=== PATIENT | female | born 1975 | race Caucasian/White ===

== ENCOUNTER 2016-09-03 18:26 | Inpatient (IN) | payer OTHER ==
--- NOTE | ~2016-09-03 | DS ---
Unit #: [id number] #: [id number] Patient: DONNA LI [id number] [address] [address] [id number] I MR#: [id number] NAME: DONNA LI ROOM: 312 Age: 41 Sex: F Admission Date: 09/04/2016 : 1975 Discharge Date: 09/04/2016 Attending Physician: Jose Garvey M.D. Primary Care Physician: Paul Wells M.D. DISCHARGE SUMMARY SHORT STAY SUMMARY DISPOSITION Transfer to [facility]. CHIEF COMPLAINT Unresponsive. HISTORY OF PRESENT ILLNESS A 41-year-old female who has history of polysubstance abuse was brought to ER by EMS. The patient's son was walking outside on the road and he found his mother. He called his friend and was brought to patient's mother's home. EMS was called and patient was brought to ER with a possible heroin overdose. Narcan was given in EMS and that did help to wake her up, but she was pretty lethargic. The patient has been evaluated in room 312. She is lethargic but she does wake up and talk. She wants to go home. She wants her mother to come and pick her up. According to her, she used cocaine two days ago and she really actually does not like using any drugs. Although as per mother, patient has been dealing with this polysubstance abuse for some time. She is and she has four children. PAST MEDICAL HISTORY 1. History of hepatitis C. 2. History of chronic back and neck pain. 3. History of depression. 4. History of polysubstance abuse. PAST SURGICAL HISTORY 1. History of right wrist surgery. 2. Tubal ligation. SOCIAL HISTORY The patient is a smoker. Smokes one pack per day. No history of alcohol abuse. History of polysubstance abuse is present. HOME MEDICATIONS Multivitamin. ALLERGIES No known drug allergies, questionable allergy to codeine. FAMILY HISTORY Unit #: [id number] #: [id number] Patient: DONNA LI Not significant. REVIEW OF SYSTEMS As per history of presenting illness. This is as per patient's mother. Patient does not really want to communicate much. PHYSICAL EXAMINATION GENERAL: Patient is lying in bed in no respiratory distress. VITAL SIGNS: Blood pressure is 124/84, respiratory rate 18, pulse 89, temperature 98, oxygen saturation is 99%. HEENT: Head is normocephalic. Eyes movements are normal. NECK: Supple. CHEST: Fair air entry. No additional sounds. CARDIOVASCULAR: Regular rhythm. ABDOMEN: Soft. EXTREMITIES: Negative edema. CENTRAL NERVOUS SYSTEM: Patient is awake, alert, oriented x3. DIAGNOSTIC STUDIES LABORATORY: Lab workup shows WBC 7.7, hemoglobin 12.4, hematocrit 38.7, platelet count 245,000. Urinalysis shows trace leukocyte esterase. Urine drug screen is positive for opiates, cocaine, benzodiazepines, and amphetamines. Sodium is 136, potassium 3.9, chloride 103, BUN 8, creatinine 0.7. Liver enzymes are normal. Acetaminophen less than 7. IMAGING: CT scan of the head without contrast... Please note: This report has been placed on the patient's electronic medical record in an incomplete status following multiple physician notifications for a completion without a response or resolution. Dictated by... Paradise Clemons TD: 09/04/2016 12:12 JOB #: [id number] DISCHARGE SUMMARY Page 1 of 1 X Marilyn Davis MD X DISCHARGE SUMMARY
--- NOTE | ~2016-09-03 | CT71 ---
[facility] A Service of [facility] RADIOLOGY TEXT RESULTS PATIENT: DONNA LI LOCATION: [facility] : 73 UNIT #: [id number] AGE: [address]: Jose Garvey MD SEX: F ORDER DR: [id number] [facility]. [place], [place] [address] [id number] I MR#: [id number] Acc #: [id number] NAME: ODNNA LI : 1975 SEX: F STUDY DATE/TIME: 09/03/2016 21:51 UNIT: [address] ROOM: [facility] STUDY DESCRIPTION: CT Head Wo Contrast Attending Physician: Jose Garvey M.D. Ordering Physician: Dannie Davidson D.O. Primary Care Physician: Paul Wells M.D. MEDICAL IMAGING REPORT This report is preliminary unless electronic signature is present EXAM CT head, noncontrast, 09/03/2016 HISTORY 41-year-old female in the ED with reported heroin overdose. She complains of headache beginning earlier today. TECHNIQUE CT examination of the head without IV contrast. This CT examination was performed with one or more of the following radiation dose reduction techniques: automatic exposure control, adjustment of mA and/or kV according to patient size, and iterative reconstruction. FINDINGS The examination is negative. No evidence of intracranial hemorrhage, mass, mass effect, cerebral edema, hydrocephalus or additional abnormality. IMPRESSION Negative head CT examination. Dictated by... Rod Flynn M.D. THIS IS AN ELECTRONICALLY VERIFIED REPORT Rod Flynn M.D. at 09/04/2016 9:56 PM CASSIUS/rex TD: 09/04/2016 08:17 JOB #: [id number] MEDICAL IMAGING REPORT [facility] A Service of [facility] RADIOLOGY TEXT RESULTS PATIENT: DONNA LI LOCATION: [facility] : 73 UNIT #: [id number] AGE: [address]: Jose Garvey MD SEX: F ORDER DR: Page 1 of 1 COPY
--- NOTE | ~2016-09-03 | CO ---
Unit #: [id number] #: [id number] Patient: CARMENCITA LI [id number] [address] [address] [id number] I MR#: [id number] NAME: CARMENCITA LI ROOM: 312 Age: 41 Sex: F Admission Date: 09/04/2016 : 1975 Attending Physician: Jose Garvey M.D. Primary Care Physician: Paul Wells M.D. Consultation Date: 09/04/2016 CONSULTATION REPORT REASON FOR CONSULTATION Overdose and depression. HISTORY OF PRESENT ILLNESS Ms. Carmencita Li is a 41-year-old female, seen in room 312 on 09/04/2016 at [facility]. The patient dressed in hospital attire, was very agitated and angry, refusing to answer any question, paranoid. The patient was admitted to hospital after taking an overdose of heroin. The patient refused to talk multiple times throughout the assessment, gave minimal information. The patient disclosed that she attempted to overdose because she could not get a job. The patient refused to give further details. The patient's urine drug screen was positive for opioid, amphetamine, and cocaine. The patient reported only use heroin. The patient is using 1 g of heroin daily. The last use was on 09/03/2016. The patient reported taking 6 mg of Xanax daily. The patient refused to disclose some further details, suicidal, sad, depressed, currently on one-to-one monitoring with a sitter. Denied any auditory or visual hallucination. PAST PSYCHIATRIC HISTORY Unremarkable for any history of any previous treatment. MEDICAL HISTORY None. MEDICATIONS None. FAMILY HISTORY AND SOCIAL HISTORY Poor support system. No history of abuse. History of substance abuse as mentioned above. REVIEW OF SYSTEMS A complete review of systems is unremarkable. MENTAL STATUS EXAMINATION The patient's vital signs; temperature 98.0, pulse 78, respirations 18, blood pressure 119/68, and oxygen saturation 100%. General appearance; the patient dressed in hospital attire. Attention span and concentration, poor. Speech, minimal. Orientation in self. Mood and affect; labile, agitated, and hostile. Thought process, circumstantial. Thought content; guarded, paranoid, suicide attempt, suicidal ideation. Recent and remote memory, poor. Language, fair. Fund of knowledge, poor. Insight and judgment, impaired. Unit #: [id number] #: [id number] Patient: CARMENCITA LI DIAGNOSES Psychiatric: Major depressive disorder, recurrent, severe, F33.2; psychosis, not otherwise specified, F29.0; opioid use disorder, severe, F11.20; amphetamine use disorder, severe, F15.20. Secondary diagnosis: Deferred. Medical diagnosis: Recent overdose. Stressors: Psychosocial stressor. ASSESSMENT AND PLAN 1. Supportive psychotherapy and psychoeducation provided to the patient. Educated about benefits and side effects of medication and course and prognosis of illness. 2. Recommending at this time to continue with 72-hour hold, one-to-one monitoring, and transfer the [facility] for psychiatric stabilization. Please feel free to call if any questions, telephone #[phone]. Dictated by... Paradise Monae/erik TD: 09/04/2016 22:48 JOB #: [id number] CONSULTATION REPORT Page 1 of 1 X Domenic Shukla MD X CONSULTATION REPORT
[~2016-09-03 18:26] MED LIST: BACLOFEN10 MG PO; HYDROCODON-ACE1 EAC1 PO; HYDROCODON-ACE1 EAC9 PO; KLONOPIN PO; LORTAB 10/500 T1 TAB PO; METHADONE PO; METRONIDAZOLE PO; NO MEDICATIONS; NORFLEX100 MG PO; PREDNISONE PO; ULTRAM PO; VICODIN 5/1 TAB 5/50 PO
[2016-09-03 20:26] LABS: BASOPHIL% 0.6 % (0-2.5); EOSINOPHIL# 0.2 X10e3 (0-0.7); EOSINOPHIL% 2.6 % (0.0-7.0); HEMATOCRIT 38.7 % (35.0-45.0); HEMOGLOBIN 12.4 gm/dL (12.0-16.0); LYMPHOCYTE# 1.6 X10e3 (1.0-3.5); LYMPHOCYTE% 20.9 % (17.0-45.0); MEAN CELL VOLUME 76.9 FL (83-96); MEAN CORPUSCULAR HEMOGLOBIN 24.7 PG (28-34); MEAN CORPUSCULAR HGB CONC 32.1 g/dL (30-36); MEAN PLATELET VOLUME 8.5 FL (6.5-11.5); MONOCYTE# 0.7 X10e3 (0-1.0); MONOCYTE% 8.9 % (3.0-12.0); NEUTROPHIL# 5.2 X10e3 (1.5-7.1); PLATELET COUNT 245 X10e3 (140-420); RED BLOOD COUNT 5.03 X10e (3.90-5.30); RED CELL DISTRIBUTION WIDTH 15.3 % (11.0-15.5); WHITE BLOOD COUNT 7.7 X10e3 (4.0-10.5)
[2016-09-03 20:28] LABS: DIFF IND NO
[2016-09-03 20:31] LABS: URINE APPEARANCE CLOUDY; URINE BILIRUBIN NEG (NEG); URINE BLOOD 2+ (NEG); URINE COLOR DK YELLOW; URINE GLUCOSE NEG (NEG); URINE KETONE TRACE (NEG); URINE LEUKOCYTE ESTERASE TRACE (NEG); URINE NITRATE NEG (NEG); URINE PH 5.5 (5-8); URINE PROTEIN NEG (NEG); URINE SPECIFIC GRAVITY 1.019 (1.003-1.035)
[2016-09-03 20:34] LABS: URBCS1 AUWI 0-2 /[HPF] (0-2); URINE BACTERIA AUWI NEG (NEGATIVE); URINE SQUAMOUS EPITHELIAL CELL FEW /[HPF]; UWBCS1 AUWI 0-2 (0-5)
[2016-09-03 20:35] LABS: CULTURE INDICATED? NO; URINE SOURCE CATH
[2016-09-03 20:47] LABS: AMPHETAMINE POS (NEG); BARBITURATES NEG (NEG); BENZODIAZEPINES POS (NEG); COCAINE POS (NEG); MARIJUANA NEG (NEG); OPIATES POS (NEG); TRICYCLIC ANTIDEPRESSANTS NEG (NEG); U METHADONE NEG (NEG)
[2016-09-03 20:51] LABS: ALBUMIN SERUM 3.6 g/dL (3.5-5.0); ALKALINE PHOSPHATASE 89 U/L (32-92); ALT (SGPT) 30 U/L (10-40); AST (SGOT) 38 U/L (10-42); BILIRUBIN, DIRECT 0.1 mg/dL (0.0-0.2); BILIRUBIN,INDIRECT 0.5 mg/dL (0.0-0.9); BILIRUBIN,TOTAL 0.6 mg/dL (0.2-2.0); BLOOD UREA NITROGEN 8 mg/dL (9-23); BUN/CREATININE RATIO 11.42; CALCIUM SERUM 8.9 mg/dL (8.4-10.2); CARBON DIOXIDE 25 mmol/L (22-31); CHLORIDE 103 mmol/L (100-111); CREATININE SERUM 0.7 mg/dL (0.6-1.4); GLOM FILT RATE Estimated 106.9 mL/min (>60); GLUCOSE FASTING 93 mg/dL (70-110); POTASSIUM 3.9 mmol/L (3.5-5.1); PROTEIN TOTAL SERUM 7.4 g/dL (6.0-8.3); SALICYLATE <4.0 mg/dL; SODIUM 136 mmol/L (135-145)
[2016-09-03 20:52] LABS: ACETAMINOPHEN <10 ug/mL; ALCOHOL BLOOD <5 mg/dL (0)
[2016-09-04] MEDS ORDERED: MULTIVITAMINS1 EAC3 PO (11:30)
== END 2016-09-04 14:53 | DRG 918 ==
LOC: CED 18:26 → CEDOF 09-04 00:36 → CED 09-04 02:24 → C3A PCU 09-04 02:24 → CEDOF 09-04 02:24 → C3A PCU 09-04 07:34 → CEDOF 09-04 07:34 → C3A PCU 09-04 14:53
PROVIDERS: Emergency Medicine
DX: T40.1X2A Poisoning by heroin, intentional self-harm, initial encounter (principal); F33.2 Major depressive disorder, recurrent severe without psychotic features; F11.20 Opioid dependence, uncomplicated; F15.20 Other stimulant dependence, uncomplicated; F29 Unspecified psychosis not due to a substance or known physiological condition
CPT/HCPCS: 36415; 51701; 70450; 80048; 80076; 80307; 81003; 85025; 96374; 99285; G0480

== ENCOUNTER 2016-09-04 11:00 | Inpatient (IN) | payer OTHER ==
--- NOTE | ~2016-09-04 | PA ---
Unit #: [id number] #: [id number] [facility] ABAD [id number] [facility] [address] [place] [address] [id number] I MR#: [id number] NAME: CARMENCITA ABAD ROOM: P208 Age: 41 Sex: F Admission Date: 09/04/2016 : 1975 Date of Assessment: Attending Physician: Domenic Shukla M.D. Admitting Physician: Domenci Shukla M.D. Primary Care Physician: Primary Care Physician No PSYCHIATRIC ASSESSMENT INFORMANTS The patient's reliability, fair; chart reliability, good. CHIEF COMPLAINT Overdose. HISTORY OF PRESENT ILLNESS Ms. Carmencita Abad is a 41-year-old female, transferred from [facility]. The patient has a history of previous treatment through [facility]. Lives with her mother. The patient was admitted after taking an overdose of heroin IV drug abuse. The patient was refusing to talk. Flat, sad, dysphoric mood, guarded and paranoid. The patient reported use of multiple drugs. The patient's urine drug screen was positive for opiate, amphetamine, cocaine. The patient reported taking Xanax. The patient was guarded, but denied any suicidal or homicidal ideation. Denied any suicidal ideation, but behavior was bizarre at the time of admission. Subsequently, the patient was placed on 72-hour hold and [facility]. PAST PSYCHIATRIC HISTORY Remarkable for history of treatment in rehab and outpatient services through [facility]. FAMILY HISTORY AND SOCIAL HISTORY The patient has a good support system. No history of abuse. No legal charges. MEDICAL HISTORY Unremarkable for any chronic medical condition. Musculoskeletal; muscle strength and tone, no atrophy or abnormal movement. Gait normal. MEDICATION HISTORY None. ALLERGIES No known drug allergies. SUBSTANCE ABUSE HISTORY The patient has a history of multiple drug abuse; history of tobacco use, age of onset 9; alcohol, age of onset 11; marijuana, 11; crack cocaine, 19; opioid, age of onset 29; and benzodiazepine, 18. Longest period of sobriety 18 months and last period of sobriety in 2012. The patient Unit #: [id number] #: [id number] Patient: CARMENCITA ABAD reported history of blackout; hepatitis; withdrawal symptoms; IV drug use symptoms such as abdominal cramping, muscle cramping, depressed mood. REVIEW OF SYSTEMS HEENT: Eyes, clear. Ears, nose, mouth, and throat; clear. CARDIOVASCULAR: Unremarkable. RESPIRATORY: Unremarkable. GI: Unremarkable. : Unremarkable. SKIN: Unremarkable. LYMPH NODE: Unremarkable. NEUROLOGIC: Unremarkable. ENDOCRINE: Unremarkable. HEMATOLOGIC: Unremarkable. ALLERGIC/IMMUNOLOGIC: Unremarkable. MUSCULOSKELETAL: Muscle strength and tone, no atrophy or abnormal movement except as mentioned above. MENTAL STATUS EXAMINATION CONSTITUTIONAL: Measurement of vital signs; temperature 98.0, pulse 78, respiratory rate 18, oxygen saturation 100%, and blood pressure 119/68. Height 5 feet 9 inches, weight 156 pounds. GENERAL APPEARANCE: The patient is tall, dressed casually in hospital attire. Attention span and concentration, fair. No facial deformity noted. MUSCULOSKELETAL: Please see above. PSYCHIATRIC EXAMINATION Description of speech; regular rate, normal volume. Description of thought process; circumstantial. Description of association; guarded and paranoid but denied any thoughts of harming self or others, mood lability and paranoia. Description of the patient's judgment; concerning everyday activity, poor. Social situation, poor. Concerning psychiatric condition, poor. Complete mental status examination; oriented in person. Attention and concentration, fair. Language, fair. Fund of knowledge, poor. Vocabulary, poor. Mood and affect, sad and dysphoric. Insight and judgment, fair to poor. ASSETS AND LIABILITIES Assets, the patient is articulate and able to take care of her ADL. Liability, history of depression, substance abuse. ADMITTING DIAGNOSES Psychiatric: 1. Mood disorder, not otherwise specified, F32.9. 2. Opioid use disorder, severe, F10.20. 3. Amphetamine use disorder, severe, F15.20. 4. Psychosis, not otherwise specified, F29.0. Secondary diagnosis: Deferred. Medical diagnosis: None. Stressors: Psychosocial stressors. PSYCHIATRIC PLAN 1. Advised to admit the patient on the inpatient unit. Provide safe, Unit #: [id number] #: [id number] Patient: CARMENCITA ABAD supportive, and structured environment. 2. Detox protocol and detox monitoring. 3. The patient to attend all the programing on the inpatient unit, group therapy, individual therapy, chemical dependency group, family session. TREATMENT GOAL To attain euthymic mood, gain insight into her problem, and learn coping skills. DISCHARGE PLAN Plan to stabilize the patient and consider followup in outpatient program. ESTIMATED LENGTH OF STAY 3 to 5 days. Dictated by... Domenic Shukla M.D. LEEROY/erik TD: 09/06/2016 03:36 JOB #: [id number] PSYCHIATRIC ASSESSMENT Page 1 of 1 X Domenic Shukla MD X PSYCHIATRIC ASSESSMENT
--- NOTE | ~2016-09-04 | DS ---
Unit #: [id number] #: [id number] Patient: DONNA LI [id number] [place] [address] [id number] I MR#: [id number] NAME: DONNA LI ROOM: [facility] Age: 41 Sex: F Admission Date: 09/04/2016 : 1975 Discharge Date: 09/05/2016 Attending Physician: Domenic Shukla M.D. Primary Care Physician: Primary Care Physician No DISCHARGE SUMMARY REASON FOR ADMISSION Substance abuse. DIAGNOSTIC STUDIES LABORATORY RESULTS: Unremarkable except urine drug screen positive for benzodiazepine, cocaine, amphetamines and opiates. HOSPITAL COURSE The patient was admitted to inpatient unit, treated with chemical dependency group, structured milieu, psychoeducation, psychotherapy, detox protocol. The patient responded well with the above modalities of treatment. Wanted to follow up in outpatient program. The patient at this time is not suicidal or homicidal denied any psychotic symptom, pleasant, cooperative. Subsequently, the patient was discharged with a plan to follow up in [facility] level of care. DISCHARGE MEDICATIONS None. DISCHARGE DIAGNOSES Psychiatric: 1. Mood disorder, not otherwise specified, F32.9. 2. Sedative hypnotic use disorder, F13.20. 3. Cocaine use disorder, moderate, F14.20. 4. Amphetamine use disorder, severe, F15.20. 5. Psychosis, not otherwise specified, F29.0. 6. Opioid use disorder, severe, F11.20. Secondary diagnosis: Deferred. Medical diagnosis: None. Stressors: Psychosocial stressors. DISCHARGE INSTRUCTIONS The patient to follow up in outpatient clinic as per case management social worker. CONDITION ON DISCHARGE The patient was pleasant and cooperative. Denied any psychotic symptom or any suicidal ideation. PROGNOSIS Guarded. Unit #: [id number] #: [id number] Patient: DONNA LI DIET AND ACTIVITY As tolerated. Dictated by... Paradise Monae/erik TD: 09/06/2016 01:47 JOB #: [id number] DISCHARGE SUMMARY Page 1 of 1 X Domenic Shukla MD X DISCHARGE SUMMARY
--- NOTE | ~2016-09-04 | HP ---
Unit #: [id number] #: [id number] Patient: CARMENCITA LI 128509 [place] [address] [id number] I MR#: [id number] NAME: CARMENCITA LI ROOM: P208 Age: 41 Sex: F Admission Date: 09/04/2016 : 1975 Attending Physician: Domenic Shukla M.D. Admitting Physician: Domenic Shukla M.D. Primary Care Physician: Primary Care Physician No HISTORY AND PHYSICAL HISTORY OF PRESENT ILLNESS Carmencita is a 41 year old, admitted to [address] [place] [address] because of her drug use. She shoots heroin. PAST MEDICAL HISTORY 1. Long history of opioid abuse to include IV heroin. 2. Hepatitis C. PAST SURGICAL HISTORY Nothing reported. ALLERGIES Codeine. SOCIAL HISTORY She smokes greater than one pack per day. She denies alcohol. Admits to long history of opioid abuse to include IV heroin. FAMILY HISTORY Medically noncontributory. REVIEW OF SYSTEMS CONSTITUTIONAL: No fever or chills. HEENT: Denies any sore throat, ear pain or runny nose. CARDIOVASCULAR: Denies chest pain, irregular heart rhythm or palpitations. CHEST: Denies shortness of breath or cough. No hemoptysis. GASTROINTESTINAL: Denies nausea, vomiting, diarrhea or chronic constipation. ENDOCRINE: Denies history of increased thirst or urination. No recent significant weight loss or gain. GENITOURINARY: Denies dysuria, frequency, or hematuria. SKIN: Denies any rashes. HEMATOLOGIC: Denies history of increased bleeding or bruising. MUSCULOSKELETAL: Denies any hot, swollen joints. No generalized muscle pain. NEUROLOGIC: Denies problems with vision or speech. No frequent, severe headaches. No numbness, tingling or weakness in any extremities. Denies loss of bladder or bowel control. CURRENT MEDICATIONS Detox protocol. PHYSICAL EXAMINATION Unit #: [id number] #: [id number] Patient: CARMENCITA LI GENERAL: Alert, well-nourished, no apparent distress. VITAL SIGNS: Blood pressure 120/68, heart rate 80, respirations 16, and temperature 98.6. WEIGHT: 156 pounds. HEIGHT: 5 feet 9 inches. SKIN: Warm and dry without rash or lesion. HEENT: Normocephalic. TMs not viewed. Oral and nasal passages clear. Conjunctivae clear. PERRLA. EOMs intact. NECK: Supple without lymphadenopathy or thyromegaly. HEART: Regular rate and rhythm without murmur. LUNGS: Clear. ABDOMEN: Soft, nontender. : Not done. EXTREMITIES: No evidence of cyanosis, clubbing or edema. Moves all without focal deficit. NEUROLOGICAL: Grossly within normal limits. Cranial Nerves: II: Visual clifford are intact. III, IV AND : Extraocular movements are intact. Pupils are equal, round and reactive to light. V: Facial sensation is grossly normal. VII: Facial movements and expression are normal. VIII: Auditory acuity grossly intact. IX, X: Uvula is midline. Phonation is normal. XI: Patient shrugs shoulders and turns head normally. XII: Tongue protrudes in the midline. Sensory and Motor Function: Sensory and motor sensation is grossly normal. Motor: moves all extremities well. Coordination: Gait is normal. Deep Tendon Reflexes: Intact. IMPRESSION Psychiatric admission. RECOMMENDATIONS Psychiatric, per psychiatrist. MEDICAL I see no contraindications to participating in facility's activities. MEDICAL PROGNOSIS Good. MEDICAL CONDITION Stable. Dictated by... Dorota Gutierrez PKennyAKenny-Cathryn. for Paradise Andrea/ling TD: 09/05/2016 12:18 JOB #: [id number] Unit #: [id number] #: [id number] Patient: CARMENCITA LI HISTORY AND PHYSICAL Page 1 of 1 X Dorota Gutierrez X HISTORY AND PHYSICAL
[2016-09-04] MEDS ORDERED: MULTIVITAMINS1 EAC3 PO (11:30)
[2016-09-05 09:38] LABS: BASOPHIL% 0.8 % (0-2.5); EOSINOPHIL# 0.2 X10e3 (0-0.7); EOSINOPHIL% 3.1 % (0.0-7.0); HEMATOCRIT 37.5 % (35.0-45.0); LYMPHOCYTE% 37.6 % (17.0-45.0); MEAN CELL VOLUME 77.4 FL (83-96); MEAN CORPUSCULAR HEMOGLOBIN 24.8 PG (28-34); MEAN PLATELET VOLUME 9.2 FL (6.5-11.5); MONOCYTE# 0.4 X10e3 (0-1.0); MONOCYTE% 7.5 % (3.0-12.0); NEUTROPHIL# 2.8 X10e3 (1.5-7.1); PLATELET COUNT 235 X10e3 (140-420); RED BLOOD COUNT 4.85 X10e (3.90-5.30); WHITE BLOOD COUNT 5.4 X10e3 (4.0-10.5)
[2016-09-05 09:56] LABS: DIFF IND NO
[2016-09-05 10:05] LABS: ALBUMIN SERUM 3.1 g/dL (3.5-5.0); BILIRUBIN,TOTAL 0.4 mg/dL (0.2-2.0); CALCIUM SERUM 8.8 mg/dL (8.4-10.2); CREATININE SERUM 0.6 mg/dL (0.6-1.4); GLOM FILT RATE Estimated 112.4 mL/min (>60); POTASSIUM 4.4 mmol/L (3.5-5.1); PROTEIN TOTAL SERUM 6.5 g/dL (6.0-8.3)
== END 2016-09-05 12:10 | DRG 885 ==
LOC: P2S 14:37 → P1E 14:37 → P2S 14:40
PROVIDERS: Psychiatry & Neurology Psychiatry
PROC: HZ2ZZZZ Detoxification Services for Substance Abuse Treatment (ICD-10-PCS; principal; 2016-09-04)
DX: F39 Unspecified mood [affective] disorder (principal); F11.20 Opioid dependence, uncomplicated; F15.20 Other stimulant dependence, uncomplicated; F13.20 Sedative, hypnotic or anxiolytic dependence, uncomplicated; F14.20 Cocaine dependence, uncomplicated; F29 Unspecified psychosis not due to a substance or known physiological condition; Z86.19 Personal history of other infectious and parasitic diseases; F17.210 Nicotine dependence, cigarettes, uncomplicated
CPT/HCPCS: 80053; 85025; 86592